=== PATIENT | male | born 1970 | race African-American/Black ===

== ENCOUNTER 2016-03-10 08:16 | Emergency (ER) | payer SELFPAY ==
[~2016-03-10] VITALS: Ht 177.8 cm; Wt 92.8 kg
[~2016-03-10 08:16] MED LIST: Z.0.NO CURRENT MEDS
[2016-03-10 08:26] VITALS: BP 136/95; PULSE 65; RESP 16; TEMP 98.9; O2SAT 100
[2016-03-10] MEDS ORDERED: BACT800T5 PO (09:07)
[2016-03-10] MEDS ORDERED: CEPH-460 PO (09:07)
--- NOTE | 2016-03-10 09:07 | PD ---
HPI Chief Complaint: Skin Problem Time Seen by Provider: 08:31 Travel History International Travel<30 days: No Contact w/Intl Traveler<30days: No Traveled to known affect area: No History of Present Illness HPI 45-year-old man who presents emergent from with several days of worsening pain tenderness swelling in his left scrotum. He was shaving afterwards he noticed a small bump. He popped a small pustule and got pus from it however there is worsening pain redness and swelling over the next couple days. It and also noticed a spot on his right abdomen and chest wall that was somewhat early developing into a tender red pustule. No history of previous similar symptoms. Does shave on his chest as well. No fevers or chills. No other complaints. History Past Medical History Medical History: Denies Significant Hx Influenza Vaccination: No Social History Alcohol Use: Yes (BEER/VODKA DAILY) Tobacco Use: No Allergies-Medications (Allergen,Severity, Reaction): Coded Allergies: No Known Allergies (Verified , 03/10/16) Reported Meds & Prescriptions Reported Meds & Active Scripts Active No Active Prescriptions or Reported Medications Review of Systems Except as stated in HPI: all other systems reviewed are Neg Physical Exam Narrative GENERAL: Well-appearing 45-year-old man, no acute distress. SKIN: Warm and dry. CARDIOVASCULAR: Warm and well perfused. RESPIRATORY: Normal rate and effort. MUSCULOSKELETAL: As right brachial abdomen in the midline there is a small approximately 3 x 5 cm area of erythema with a central area of induration and a small pustule. There is no fluctuance. : Normal male genitalia. In the left hemiscrotum there is a small area of erythema redness and tenderness with active purulent drainage. NEUROLOGICAL: Awake and alert. No gross deficits. Data Data Last Documented VS Vital Signs Date Time Temp Pulse Resp B/P Pulse Ox O2 Delivery O2 Flow Rate FiO2 03/10/16 08:26 98.9 65 16 136/95 100 Orders Ed Poc Ultrasound (03/10/16 ) Wound Culture And Gram Stain (03/10/16 08:52) MDM Medical Decision Making Medical Screen Exam Complete: Yes Emergency Medical Condition: Yes Differential Diagnosis Abscess, cellulitis, STD, other Narrative Course Medical decision making Is a 45-year-old man who presents to the emergency department with small abscess spontaneously draining on the left hemiscrotum, as well as a area of cellulitis and induration on the right chest. Looks well. Chest examined under ultrasound with no drainable fluid collection. Recommend antibiotics. Procedures Procedure Narrative Point of care ultrasound: Focus soft tissue ultrasounds performed by me at the bedside to evaluate for any drainable fluid collection. No drainable fluid collection was identified. Diagnosis Primary Impression: Scrotal abscess Additional Impression: Cellulitis of abdominal wall Additional Instructions: Take antibiotics as prescribed. Return to the emergency department for any worsening pain redness swelling fevers or any other new or worsening symptoms. Follow-up with her primary doctor for not completely well in the next 3-5 days. Med/Other Pt SpecificInfo: Prescription(s) given Scripts Sulfamethoxazole-Trimethoprim (Bactrim DS)800-160 Mg Tab1 Tab PO BID 7 Days Ref 0 Prov:Jeramie Santacruz MD 03/10/16 Cephalexin (Keflex)500 Mg Yit205 Mg PO Q8H 7 Days Ref 0 Prov:Jeramie Santacruz MD 03/10/16 Disposition: 01 DISCHARGE HOME Condition: Stable Jeramie Santacruz MD Mar 10, 2016 09:07
== END 2016-03-10 09:20 | disposition home or self-care (01) ==
LOC: PHED 08:16
DX: N49.2 Inflammatory disorders of scrotum (principal); L03.311 Cellulitis of abdominal wall; B95.62 Methicillin resistant Staphylococcus aureus infection as the cause of diseases classified elsewhere
CPT/HCPCS: 86403; 87070; 87186; 99283

== ENCOUNTER 2016-03-17 09:18 | Emergency (ER) | payer SELFPAY ==
[~2016-03-17] VITALS: Ht 177.8 cm; Wt 90.0 kg
[~2016-03-17 09:18] MED LIST changes: +BACT800T5 PO; +CEPH-460 PO; -Z.0.NO CURRENT MEDS
[2016-03-17 09:25] VITALS: BP 128/79; PULSE 69; RESP 18; TEMP 98.6; O2SAT 98
--- NOTE | 2016-03-17 09:39 | PD ---
HPI Chief Complaint: Skin Problem Time Seen by Provider: 09:28 Travel History International Travel<30 days: No Contact w/Intl Traveler<30days: No Traveled to known affect area: No History of Present Illness HPI Patient's 55-year-old male who presents for recheck of an abscess to his right side of his abdomen. Patient states he was here a week ago and had an abscess on his left scrotum as well as his right abdomen was placed on Bactrim and Keflex which she's been taking but was told that his abscesses were resolved after we to return the emergency department for another evaluation. Patient states that his abscess on his abdomen has started draining and has been shrinking in size over the past week. Denies any fevers denies any nausea vomiting. Patient states the abscess on his scrotum is completely resolved some declines an exam at this time. PFSH Past Medical History Diminished Hearing: No Past Surgical History Thoracic Surgery: Yes (RIGHT CHEST TUBE S/P [facility] 1991) Social History Alcohol Use: Yes (BEER/VODKA DAILY) Tobacco Use: No Substance Use: No Allergies-Medications (Allergen,Severity, Reaction): Coded Allergies: *MDRO Multi-Drug Resistant Organism (Verified Adverse Reaction, Unknown, ) MRSA (scrotum)-03/10/16 Reported Meds & Prescriptions Reported Meds & Active Scripts Active Bactrim DS (Sulfamethoxazole-Trimethoprim) 800-160 Mg Tab 1 Tab PO BID 7 Days Keflex (Cephalexin) 500 Mg Cap 500 Mg PO Q8H 7 Days Review of Systems Except as stated in HPI: all other systems reviewed are Neg Physical Exam Narrative GENERAL: Well-nourished, well-developed patient. SKIN: Warm and dry. There is a 2 x 2 centimeter area of induration on the right side of the abdominal wall just the right of the umbilicus. There is no cellulitis on the scan at this time. No discharge can be expressed. Minimally tender to palpation. HEAD: Normocephalic. EYES: No scleral icterus. No injection or drainage. NECK: Supple, trachea midline. No JVD or lymphadenopathy. CARDIOVASCULAR: Regular rate and rhythm without murmurs, gallops, or rubs. RESPIRATORY: Breath sounds equal bilaterally. No accessory muscle use. GASTROINTESTINAL: Abdomen soft, non-tender, nondistended. Genitourinary: Declined by patient. MUSCULOSKELETAL: No cyanosis, or edema. BACK: Nontender without obvious deformity. No CVA tenderness. Data Data Last Documented VS Vital Signs Date Time Temp Pulse Resp B/P Pulse Ox O2 Delivery O2 Flow Rate FiO2 03/17/16 09:25 98.6 69 18 128/79 98 Orders Ed Poc Ultrasound (03/17/16 ) MDM Medical Decision Making Medical Screen Exam Complete: Yes Emergency Medical Condition: Yes Differential Diagnosis Abscess, cellulitis, folliculitis. Narrative Course Patient 45-year-old male roomed in the emergency department, appears well and in no apparent distress. Nontoxic appearance. He has an abscess to the right side of his abdominal wall which is superficial and palpation. Bedside ultrasound was reassuring. Patient has been draining spontaneously. Discussed symptomatic management. Discussed return to ED criteria and follow up with primary care physician. He was offered pain medicine in the emergency department and stated he was not having pain. Procedures Procedure Narrative Bedside ultrasound performed of the abdominal abscess and shows trace fluid collection less than 1 mm in thickness and less than 1 cm in length. Not amenable to ER drainage. There is no apparent communication internally. Diagnosis Primary Impression: Abscess, abdomen Additional Instructions: Use warm compress 4 times a day. While in the shower squeeze the abscess to try and remove more discharge. Return to the ED if it grows in size to start running fevers of the redness on your abdomen worsens. Take antibiotics until they're all gone. Disposition: 01 DISCHARGE HOME Condition: Stable Reilly Cunningham MD Mar 17, 2016 09:39
== END 2016-03-17 10:00 | disposition home or self-care (01) ==
LOC: PHED 09:18
DX: L02.211 Cutaneous abscess of abdominal wall (principal)
CPT/HCPCS: 10060; 99282

== ENCOUNTER 2017-03-26 11:37 | Emergency (ER) | payer OTHER ==
[~2017-03-26] VITALS: Ht 177.8 cm; Wt 96.0 kg
[2017-03-26 11:38] VITALS: BP 142/90; PULSE 60; RESP 16; TEMP 98.6; O2SAT 99
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
[2017-03-26] MEDS ORDERED: IBUP1TAB7 PO (15:12)
[2017-03-26] MEDS ORDERED: ROBA750T PO (15:12)
== END 2017-03-26 15:22 | disposition home or self-care (01) ==
LOC: PHEFT 11:37
DX: S16.1XXA Strain of muscle, fascia and tendon at neck level, initial encounter (principal); Z72.0 Tobacco use; V89.2XXA Person injured in unspecified motor-vehicle accident, traffic, initial encounter
CPT/HCPCS: 72125